=== PATIENT | male | born 1995 | race Caucasian/White ===

== ENCOUNTER 2021-05-16 16:59 | Emergency (ER) | payer BC ==
--- NOTE | 2021-05-16 17:33 | EDM.PDOC ---
ED HPI GENERAL MEDICAL PROBLEM - General Chief Complaint: Exposure to Heat or Cold Stated Complaint: HEAT EXHAUSTION Time Seen by Provider: 05/16/21 17:25 Source of Information: Reports: Patient, Family (Mother and father), RN, RN Notes Reviewed History Limitations: Reports: No Limitations - History of Present Illness INITIAL COMMENTS - FREE TEXT/NARRATIVE: Ranjith is a 25 y/o male who presents to the ED via personal vehicle with his parents for complaints of pre-syncope. The patient reports he has been very active outside in the heat over the holiday weekend. He notes he drank alcohol for four days in a row, starting six days ago. Two days ago he started to notice dizziness, chills, fatigue, diffuse abdominal pain, and nausea which is why he did not drink as heavily. He feels his symptoms have been transient in nature and mostly improved today following ingestion of large quantities of water and electrolyte replacement drinks, however, about 30 minutes prior to his arrival he became extremely dizzy while up walking. He denies fever, chest pain, palpitations, shortness of breath, dyspepsia, vomiting, dysuria, diarrhea, or constipation. He notes his last bowel movement was this morning. His last meal was this evening. He has not taken any medications for his symptoms. The patient attests to transiently smoking marijuana; he denies tobacco use. - Related Data Allergies Allergy/AdvReac Type Severity Reaction Status Date / Time Penicillins Allergy Rash Verified 05/16/21 17:11 Home Meds: Home Meds . [No Known Home Meds] 05/16/21 [History] Past Medical History - Past Health History Medical/Surgical History: Denies Medical/Surgical History HEENT History: Reports: None Cardiovascular History: Reports: None Respiratory History: Reports: None Gastrointestinal History: Reports: None Genitourinary History: Reports: None Musculoskeletal History: Reports: None Neurological History: Reports: None Psychiatric History: Reports: None Endocrine/Metabolic History: Reports: None Hematologic History: Reports: None Immunologic History: Reports: None Oncologic (Cancer) History: Reports: None Dermatologic History: Reports: None - Infectious Disease History Infectious Disease History: Reports: None - Past Surgical History Head Surgeries/Procedures: Reports: None Social & Family History - Family History Family Medical History: Unobtainable - Tobacco Use Tobacco Use Status *Q: Never Tobacco User Second Hand Smoke Exposure: No - Caffeine Use Caffeine Use: Reports: Coffee, Soda - Alcohol Use Days Per Week of Alcohol Use: 4 Number of Drinks Per Day: 6 Total Drinks Per Week: 24 - Recreational Drug Use Recreational Drug Use: No ED ROS GENERAL - Review of Systems Review Of Systems: Comprehensive ROS is negative, except as noted in HPI. ED EXAM, GENERAL - Physical Exam Exam: See Below Exam Limited By: No Limitations General Appearance: Alert, No Apparent Distress, Thin Eye Exam: Bilateral Eye: EOMI, Nystagmus (Lateral gaze), PERRL (5mm) Ears: Normal External Exam, Hearing Grossly Normal, Other (Cerumen impaction right ) Ear Exam: Bilateral Ear: Auricle Normal Nose: Normal Inspection, Normal Mucosa, No Blood Throat/Mouth: Normal Inspection, Normal Lips, Normal Teeth, Normal Gums, Normal Oropharynx, Normal Voice, No Airway Compromise Head: Atraumatic, Normocephalic Neck: Normal Inspection, Supple, Non-Tender, Full Range of Motion. No: Lymphad enopathy (L), Lymphadenopathy (R) Respiratory/Chest: No Respiratory Distress, Lungs Clear, Normal Breath Sounds, No Accessory Muscle Use, Chest Non-Tender Cardiovascular: Normal Peripheral Pulses, Regular Rate, Rhythm, No Edema, No Gallop, No JVD, No Murmur, No Rub Peripheral Pulses: 2+: Radial (L), Radial (R) GI/Abdominal: Normal Bowel Sounds, Soft, Non-Tender, No Distention, No Abnormal Bruit, No Mass, Pelvis Stable (Male) Exam: Deferred Rectal (Males) Exam: Deferred Back Exam: Normal Inspection, Full Range of Motion Extremities: Normal Inspection, Normal Range of Motion, Non-Tender, No Pedal Edema, Normal Capillary Refill Neurological: Alert, Oriented, CN II-XII Intact, Normal Cognition, Normal Gait, No Motor/Sensory Deficits Psychiatric: Normal Affect, Normal Mood Skin Exam: Warm, Dry, Intact, Normal Color, No Rash. No: Cyanosis, Ecchymosis, Erythema, Mottled, Pallor, Petechiae #1 Interpretation EKG Date: 05/16/21 Time: 17:39 Rhythm: NSR Rate (Beats/Min): 72 Jarrell: Normal P-Wave: Present QRS: Normal ST-T: Normal OK/PQ Interval: 0.14 Comparison: NA - No Prior EKG EKG Interpretation Comments: NSR; No evidence of acute myocardial ischemia Course - Vital Signs Last Recorded V/S: Last Vital Signs Temp 97.7 F 05/16/21 17:11 Pulse 90 05/16/21 17:11 Resp 18 05/16/21 17:11 BP 168/100 H 05/16/21 17:11 Pulse Ox 100 05/16/21 17:11 - Orders/Labs/Meds Labs: Laboratory Tests 05/16/21 05/16/21 05/16/21 Range/Units 17:37 17:37 17:37 WBC 6.1 (5.0-10.0) 10^3/uL RBC 5.44 (4.6-6.2) 10^6/uL Hgb 17.1 (14.0-18.0) g/dL Hct 49.4 (40.0-54.0) % MCV 90.8 (80-100) fL MCH 31.4 (27.0-34.0) pg MCHC 34.6 (33.0-35.0) g/dL Plt Count 206 (150-450) 10^3/uL Neut % (Auto) 56.0 (42.2-75.2) % Lymph % (Auto) 28.0 (20.5-50.1) % [place] % (Auto) 14.1 H (2-8) % Eos % (Auto) 1.6 (1.0-3.0) % Baso % (Auto) 0.3 (0.0-1.0) % Sodium (136-145) mmol/L Potassium (3.5-5.1) mmol/L Chloride (98-107) mmol/L Carbon Dioxide (21-32) mmol/L Anion Gap (7-13) mEq/L BUN (7-18) mg/dL Creatinine (0.70-1.30) mg/dL Est Cr Clr Drug Dosing mL/min Estimated GFR (MDRD) BUN/Creatinine Ratio (No establ ref range) Glucose (70-99) mg/dL Lactic Acid (0.4-2.0) mmol/L Calcium (8.5-10.1) mg/dL Magnesium (1.8-2.4) mg/dL Total Bilirubin (0.2-1.0) mg/dL AST (15-37) U/L ALT (16-63) U/L Alkaline Phosphatase (46-116) U/L Troponin I High Sens (<=76) pg/mL C-Reactive Protein (0.0-0.9) mg/dL Total Protein (6.4-8.2) g/dL Albumin (3.4-5.0) g/dL Globulin Albumin/Globulin Ratio Urine Color Light yellow (YELLOW) Urine Appearance Clear (CLEAR) Urine pH 7.5 (5.0-9.0) Ur Specific [place] 1.020 (1.005-1.030) Urine Protein Negative (NEGATIVE) Urine Glucose (UA) Negative (NEGATIVE) Urine Ketones Negative (NEGATIVE) Urine Occult Blood Negative (NEGATIVE) Urine Nitrite Negative (NEGATIVE) Urine Bilirubin Negative (NEGATIVE) Urine Urobilinogen 0.2 (0.2-1.0) mg/dL Ur Leukocyte Esterase Negative (NEGATIVE) Urine Opiates Screen Negative (NEGATIVE) Ur Oxycodone Screen Negative (NEGATIVE) Urine Methadone Screen Negative (NEGATIVE) Ur Barbiturates Screen Negative (NEGATIVE) U Tricyclic Antidepress Negative (NEGATIVE) Ur Phencyclidine Scrn Negative (NEGATIVE) Ur Amphetamine Screen Negative (NEGATIVE) U Methamphetamines Scrn Negative (NEGATIVE) Urine MDMA Screen Negative (NEGATIVE) U Benzodiazepines Scrn Negative (NEGATIVE) Urine Cocaine Screen Negative (NEGATIVE) U Marijuana (THC) Screen Negative (NEGATIVE) Ethyl Alcohol (0) mg/dL Influenza Type A RNA (NEGATIVE) Influenza Type B RNA (NEGATIVE) SARS-CoV-2 RNA (LACEY) (NEGATIVE) 05/16/21 05/16/21 05/16/21 Range/Units 17:37 17:37 17:58 WBC (5.0-10.0) 10^3/uL RBC (4.6-6.2) 10^6/uL Hgb (14.0-18.0) g/dL Hct (40.0-54.0) % MCV (80-100) fL MCH (27.0-34.0) pg MCHC (33.0-35.0) g/dL Plt Count (150-450) 10^3/uL Neut % (Auto) (42.2-75.2) % Lymph % (Auto) (20.5-50.1) % [place] % (Auto) (2-8) % Eos % (Auto) (1.0-3.0) % Baso % (Auto) (0.0-1.0) % Sodium 140 (136-145) mmol/L Potassium 3.9 (3.5-5.1) mmol/L Chloride 104 (98-107) mmol/L Carbon Dioxide 28 (21-32) mmol/L Anion Gap 11.9 (7-13) mEq/L BUN 11 (7-18) mg/dL Creatinine 1.05 (0.70-1.30) mg/dL Est Cr Clr Drug Dosing 120.10 mL/min Estimated GFR (MDRD) > 60 BUN/Creatinine Ratio 10.5 (No establ ref range) Glucose 124 H (70-99) mg/dL Lactic Acid 1.5 (0.4-2.0) mmol/L Calcium 8.7 (8.5-10.1) mg/dL Magnesium 2.2 (1.8-2.4) mg/dL Total Bilirubin 0.5 (0.2-1.0) mg/dL AST 13 L (15-37) U/L ALT 30 (16-63) U/L Alkaline Phosphatase 73 (46-116) U/L Troponin I High Sens 17 (<=76) pg/mL C-Reactive Protein < 0.2 (0.0-0.9) mg/dL Total Protein 7.1 (6.4-8.2) g/dL Albumin 3.8 (3.4-5.0) g/dL Globulin 3.3 Albumin/Globulin Ratio 1.2 Urine Color (YELLOW) Urine Appearance (CLEAR) Urine pH (5.0-9.0) Ur Specific [place] (1.005-1.030) Urine Protein (NEGATIVE) Urine Glucose (UA) (NEGATIVE) Urine Ketones (NEGATIVE) Urine Occult Blood (NEGATIVE) Urine Nitrite (NEGATIVE) Urine Bilirubin (NEGATIVE) Urine Urobilinogen (0.2-1.0) mg/dL Ur Leukocyte Esterase (NEGATIVE) Urine Opiates Screen (NEGATIVE) Ur Oxycodone Screen (NEGATIVE) Urine Methadone Screen (NEGATIVE) Ur Barbiturates Screen (NEGATIVE) U Tricyclic Antidepress (NEGATIVE) Ur Phencyclidine Scrn (NEGATIVE) Ur Amphetamine Screen (NEGATIVE) U Methamphetamines Scrn (NEGATIVE) Urine MDMA Screen (NEGATIVE) U Benzodiazepines Scrn (NEGATIVE) Urine Cocaine Screen (NEGATIVE) U Marijuana (THC) Screen (NEGATIVE) Ethyl Alcohol < 3 (0) mg/dL Influenza Type A RNA Negative (NEGATIVE) Influenza Type B RNA Negative (NEGATIVE) SARS-CoV-2 RNA (LACEY) Negative (NEGATIVE) Meds: Medications Discontinued Medications Generic Name Dose Route Start Last Admin Trade Name Madina PRN Reason Stop Dose Admin Meclizine HCl 25 mg 05/16/21 19:00 05/16/21 19:11 Meclizine 12.5 Mg Tab PO 05/16/21 19:01 25 mg ONETIME ONE Administration - Re-Assessments/Exams Free Text/Narrative Re-Assessment/Exam: 05/16/21 Findings of examination, lab work, and EKG reviewed with patient and parents. Will treat tympanic fluid with Flonase; will treat impacted cerumen with softener. Discussed supportive cares as well as red flag signs and symptoms which would warrant reevaluation reviewed. Patient and parents verbalized understanding and agreement with the plan of care. Departure - Departure Time of Disposition: 18:57 Disposition: Home, Self-Care 01 Condition: Fair Clinical Impression: Right ear impacted cerumen, Dizziness, Fluid level behind tympanic membrane of left ear Eustachian tube dysfunction Qualifiers: Laterality: unspecified laterality Qualified Code(s): H69.80 - Other specified disorders of Eustachian tube, unspecified ear - Discharge Information *PRESCRIPTION DRUG MONITORING PROGRAM REVIEWED*: Not Applicable *COPY OF PRESCRIPTION DRUG MONITORING REPORT IN PATIENT SCOTT: Not Applicable Forms: ED Department Discharge Additional Instructions: Rx: meclizine 1.) Take Flonase daily, 2 sprays into each nostril daily. 2.) Instill ear wax softer into left ear, per manufactures instructions. 3.) Follow up with primary care provider, or return to the emergency department, with symptoms that do not improve with 48 hours of medications, or should you experience fever, shaking chills, chest pain, vomiting, or diarrhea. Sepsis Event Note (ED) - Evaluation Sepsis Screening Result: No Definite Risk
[2021-05-16 18:07] LABS: ANION GAP 11.9 mEq/L (7-13); CHLORIDE,CL 104 mmol/L (98-107); SODIUM,NA 140 mmol/L (136-145)
[2021-05-16 18:46] LABS: CORONAVIRUS COVID-19 NAA NEGATIVE (NEGATIVE)
[2021-05-16] MEDS ORDERED: Meclizine 12.5 MG Tab PO ONE (19:00)
== END 2021-05-16 19:13 | disposition home or self-care (01) ==
LOC: DL.ED 16:59
DX: H61.21 Impacted cerumen, right ear (principal); H73.892 Other specified disorders of tympanic membrane, left ear; H69.80 Other specified disorders of Eustachian tube, unspecified ear; Z88.0 Allergy status to penicillin; Z20.822 Contact with and (suspected) exposure to COVID-19
CPT/HCPCS: 0240U; 36415; 80053; 80305; 80307; 81003; 83605; 83735; 84484; 85025; 86140; 93005; 99284; A9270; 99283